=== PATIENT | female | born 1990 | race American Indian/Alaskan Native ===

== ENCOUNTER 2023-06-19 10:10 | Emergency (ER) | payer OTHER, SELFPAY ==
[2023-06-19 10:17] VITALS: BP 109/76
--- NOTE | 2023-06-19 10:55 | ED.GENMED ---
History of Present Illness
General
Chief Complaint: Abdominal Symptoms
Source: patient
Exam Limitations: none
Time Seen by Provider: 06/19/23 10:38
Travel History
Have you had any contact with someone who has COVID-19?: No
Do you have any symptoms of coronavirus? Fever > 100 degrees, chills, cough, shortness of breath, sore throat, loss of taste or smell, muscle aches, or headache?: No
History of Present Illness
History of Present Illness:
33-year-old female presents with lower abdominal pain. She is a G2, P1 female she estimates around 5 or 6 weeks gestation. She noted onset of lower abdominal pain 2 days ago after lifting something heavy while at work. She lifted something today
and had more pain. She denies any vaginal bleeding. No flank pain. No chest pain or shortness of breath. No other complaints at this time
Past History
Past History
ED Past Medical History: Other (Anemia)
ED Past Surgical History: None
Social History
Tobacco: Non-smoker
Alcohol: None
Drug: None
Personal:
Living: with family
Phy Exam
Physical Exam
Physical Exam:
General: Well-appearing female no acute respiratory distress
HEENT: Normocephalic atraumatic
Heart: Regular rate and rhythm no murmurs
Lungs: Clear to auscultation bilaterally no wheeze
Abdomen: Soft mildly tender to the suprapubic region no guarding or rebound normal bowel sounds nondistended
Extremities: No cyanosis
Course
Orders/Labs/Results
Orders:
Orders
06/19/23 10:55
Test Result ONCE
US 1st Trimester Urgent
Comment:
Reason For Exam: abdominal pain
06/19/23 11:18
Complete Blood Count/With Diff Urgent
Comprehensive Metabolic Panel Urgent
HCG, Beta Quantitative [Beta HCG Quantitative] Urgent
Is this a screen?: No
Abnormal Lab Results
06/19/23
11:18
MCH 31.2 H pg
(27.0-31.0)
Sodium 131 L mmol/L
(135-145)
Creatinine 0.5 L mg/dL
(0.6-1.0)
Alkaline Phosphatase 30 L U/L
(38-126)
06/19/23 11:18
06/19/23 11:18
Vital Signs
Initial and Last Documented VS:
Initial Vital Signs
Temp Pulse Resp BP Pulse Ox
98.9 F 88 18 109/76 98
06/19/23 10:17 06/19/23 10:17 06/19/23 10:17 06/19/23 10:17 06/19/23 10:17
Last Documented Vital Signs
Temp Pulse Resp BP Pulse Ox
98.9 F 78 16 121/88 100
06/19/23 10:17 06/19/23 11:13 06/19/23 11:13 06/19/23 11:13 06/19/23 11:13
MDM/Problems Addressed
Differential Diagnosis Includes:
Lower abdominal pain in setting of early . Could be muscular strain. Will check ultrasound beta-hCG and labs.
*Critical Care Note
Total Time (30-74mins, 75-104mins- exclusive of procedures): Not Applicable
Update Note
Update Note:
Ultrasound demonstrates single IUP measuring 7 weeks plus or minus a day. Beta-hCG over 141,000. heart tones 147 bpm. Labs reviewed and are otherwise normal. Suspect potential abdominal strain. No vaginal bleeding at this time.
Recommended avoidance of heavy lifting until cleared to do so by OB.
ED Attending Note
-
Portions of this chart may have been created with voice recognition software.� Occasional wrong word or��sound alike� substitutions may have occurred due to the inherent limitations of voice recognition software.
Discharge Plan
Departure
Patient Disposition: Home (Routine Discharge)
Date of Disposition: 06/19/23
Time of Disposition: 12:51
Patient with high blood pressure during this ER visit?: No
Discharge Problem:
Abdominal pain
Instructions: Abdominal Pain
Prescriptions:
No Action
biotin 1 MG tablet
1 mg PO DAILY
Referrals:
Lucía Mcintosh PA-C [Family Provider] -
Stand Alone Forms: Return to Work
Activity Restrictions/Additional Instructions:
You may use Tylenol if needed for pain. Avoid heavy lifting. Follow-up with OB as planned
Interventions
Interventions:
*Risk Screen - Suicide Last Done: 06/19/23 11:13
*General Assessment Last Done: 06/19/23 11:13
*Neglect/Abuse Screening Last Done: 06/19/23 11:13
ED- Fall Risk Assessment Last Done: 06/19/23 11:13
*ED COVID-19 Vaccine History Last Done: 06/19/23 10:22
BR-Ljbvjo-Qkiyqxwixl Assessment Last Done: 06/19/23 11:13
[2023-06-19 11:12] VITALS: BMI 25.7
[2023-06-19 11:13] VITALS: BP 121/88
[2023-06-19 11:26] LABS: % Basophils 0.3 % (0-2); % Eosinophils 0.2 % (0-6); % Immature Granulocytes 0.3 % (0-0.5); % Lymphocytes 22.2 % (20.5-51.1); % Monocytes 6.5 % (1.7-9.3); % Neutrophils 70.5 % (42.2-75.2); Absolute Lymphocytes 1.5 10^3/uL (1.2-3.4); Absolute Monocytes 0.4 10^3/uL (0.1-0.6); Absolute Neutrophils 4.7 10^3/uL (1.4-6.5); Hematocrit 37.3 % (37.0-47.0); Hemoglobin 13.4 g/dL (12.0-16.0); Mean Corp Hgb Conc. 35.9 g/dL (33.0-37.0); Mean Corpuscular Hgb 31.2 pg (27.0-31.0); Mean Corpuscular Volume 86.7 fL (81.0-99.0); Nucleated Red Blood Cells % 0 %; Platelet Count 226 10^3/uL (130-400); Red Cell Dist. Width 12.6 % (11.5-14.5); White Blood Cell Count 6.6 10^3/uL (4.8-10.8)
[2023-06-19 11:42] LABS: ALT (SGPT) 22 U/L (0-35); AST (SGOT) 26 U/L (14-36); Alkaline Phosphatase 30 U/L (38-126); Blood Urea Nitrogen 8 mg/dl (7-17); Carbon Dioxide 23 mmol/L (22-30); Chloride 104 mmol/L (98-107); Estimated Creatinine Clearance > 125 ml/min; Glucose 87 mg/dl (70-99); Sodium 131 mmol/L (135-145); Total Bilirubin 0.6 mg/dl (0.2-1.3); Total Protein 6.6 g/dl (6.3-8.2); eGFR > 60.00
[2023-06-19 13:00] VITALS: BP 103/71
== END 2023-06-19 13:00 | disposition home or self-care (01) ==
LOC: EMR 10:10
PROVIDERS: Physician Assistant; EMERGENCY PHYSICIAN Emergency Medicine; FAMILY PHYSICIAN Physician Assistant Medical
DX: O99.891 Other specified diseases and conditions complicating pregnancy (principal); R10.30 Lower abdominal pain, unspecified; Z3A.01 Less than 8 weeks gestation of pregnancy
CPT/HCPCS: 99284; 76801; 80053; 84702; 85025

== ENCOUNTER → 2023-07-02 07:41 | Outpatient (REF) | payer OTHER, SELFPAY | LOC: RAD 07:41 | PROVIDERS: ATTENDING PHYSICIAN Nurse Practitioner Family; FAMILY PHYSICIAN Physician Assistant Medical | DX: Z34.90 Encounter for supervision of normal pregnancy, unspecified, unspecified trimester (principal) | CPT/HCPCS: 76801 ==

== ENCOUNTER → 2023-10-09 11:57 | Outpatient (REF) | payer OTHER, SELFPAY | LOC: PNTC 11:57 | PROVIDERS: ATTENDING PHYSICIAN Obstetrics & Gynecology | DX: Z34.82 Encounter for supervision of other normal pregnancy, second trimester (principal) | CPT/HCPCS: 76805 ==

== ENCOUNTER 2024-02-05 17:15 | Inpatient (IN) | payer OTHER, SELFPAY ==
[2024-02-05] MEDS: LR 1000 IV ×2 (17:30→23:24)
[2024-02-05 17:31] VITALS: BMI 33.2
[2024-02-05 18:25] VITALS: BP 135/78
[2024-02-05 19:05] LABS: % Basophils 0.5 % (0-2); % Eosinophils 0.8 % (0-6); % Immature Granulocytes 1.9 % (0-0.5); % Lymphocytes 18.3 % (20.5-51.1); % Monocytes 7.4 % (1.7-9.3); % Neutrophils 71.1 % (42.2-75.2); Absolute Basophils 0.1 10^3/uL (0-0.2); Absolute Eosinophils 0.1 10^3/uL (0-0.7); Absolute Immature Granulocytes 0.2 10^3/uL (0-0.05); Absolute Lymphocytes 1.7 10^3/uL (1.2-3.4); Absolute Monocytes 0.7 10^3/uL (0.1-0.6); Absolute Neutrophils 6.6 10^3/uL (1.4-6.5); Hematocrit 41.1 % (37.0-47.0); Mean Corp Hgb Conc. 36.5 g/dL (33.0-37.0); Mean Corpuscular Hgb 32.7 pg (27.0-31.0); Mean Corpuscular Volume 89.5 fL (81.0-99.0); Mean Platelet Volume 10.8 fL (7.4-10.4); Nucleated Red Blood Cells % 0 %; Platelet Count 224 10^3/uL (130-400); Red Blood Cell Count 4.59 10^6/uL (4.20-5.40); White Blood Cell Count 9.3 10^3/uL (4.8-10.8)
[2024-02-05] MEDS: PITOCIN 30 UNITS/NSS 500 ML IV (19:23)
[2024-02-05] MEDS: TYLENOL 1000 MG PO (23:45)
[2024-02-06] MEDS: STADOL 1 MG IV (03:27)
[2024-02-06] MEDS: LR 1000 IV (04:30)
[2024-02-06] MEDS: FENTANYL/BUPIVACAINE 100 EPIDURAL (05:33)
[2024-02-06] MEDS: SUBLIMAZE 100 MCG EPIDURAL (05:33)
[2024-02-06] MEDS: PITOCIN 30 UNITS/NSS 500 ML IV (06:34)
[2024-02-06 06:47] LABS: Cord ABG Comment CORD BLOOD
[2024-02-06 06:59] LABS: B.E. Cord ABG -1.2 mMOL/L; HCO3 Cord ABG 25.8 mmol/L; PCO2 Cord ABG 50 mmHg; PO2 Cord ABG 23 mmHg; pH Cord ABG 7.32
[2024-02-06 07:08] LABS: B.E. Cord ABG 0.7 mMOL/L; HCO3 Cord ABG 30.9 mmol/L; O2 Saturation % Cord ABG 12.5 %; PCO2 Cord ABG 72 mmHg; PO2 Cord ABG 12 mmHg; pH Cord ABG 7.24
[2024-02-06] MEDS: PRENATAL PLUS PO (15:50)
[2024-02-06] MEDS: MOTRIN 600 MG PO (20:39)
[2024-02-06] MEDS: TYLENOL 650 MG PO (20:40)
[2024-02-07 05:19] LABS: Hematocrit 36.1 % (37.0-47.0); Hemoglobin 13.1 g/dL (12.0-16.0)
[2024-02-07] MEDS: PRENATAL PLUS 1 TABLET PO (08:44)
[2024-02-07] MEDS: TYLENOL 650 MG PO (09:39)
[2024-02-10 14:47] LABS: Syphilis/T. pallidum Ab Reflex Negative (Negative)
== END 2024-02-07 14:42 | disposition home or self-care (01) | DRG 807 ==
LOC: LDRP 17:15
PROVIDERS: ADMITTING PHYSICIAN Obstetrics & Gynecology
PROC: 10E0XZZ Delivery of Products of Conception, External Approach (ICD-10-PCS; 2024-02-06)
PROC: 0HQ9XZZ Repair Perineum Skin, External Approach (ICD-10-PCS; 2024-02-06)
DX: O48.0 Post-term pregnancy (principal); Z37.0 Single live birth; Z3A.40 40 weeks gestation of pregnancy; O36.8130 Decreased fetal movements, third trimester, not applicable or unspecified; O69.81X0 Labor and delivery complicated by cord around neck, without compression, not applicable or unspecified; O66.0 Obstructed labor due to shoulder dystocia; O70.0 First degree perineal laceration during delivery
CPT/HCPCS: 88307; 59025; 76815; 82803; 85014; 85018; 85025; 86780; 86850; 86900; 86901